=== PATIENT | male | born 2000 | race Caucasian/White ===

== ENCOUNTER 2022-08-13 10:17 | Outpatient (CLI) | payer OTHER, SELFPAY ==
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
--- OUTSIDE RECORDS SUMMARY | 2022-08-13 10:21 | XMS_ITS | Clinical Summary ---
:2000 Author Organization [facility] Address [address] [place] [address] Care Team Providers Name Role Phone Needs Pcp, Assignment Primary Care Provider Source Comments You are receiving this document as you are listed as the primary care provider,follow-up provider, or the patient has been referred to you for consultation.This is in compliance with the Medicare and Medicaid EHR Incentive Program,which states Providers who transition their patient to another setting of careor provider of care or refers their patient to another provider of care shouldprovide summarycare record for each transition of care or referral. [facility] Allergies No known active allergies Medications No known medications Immunizations Name Administration Dates Next Due 4vHPV (Gardasil) 05/27/2013 DTaP 06/17/2006, 09/09/2002, 2001, 2001, 2001 HepA Ped/Adol (1-18 yrs) 05/27/2013 HepA, Pediatric (DO NOT USE; for MIIC 06/23/2007 only) HepB Ped/Adol (0-18 yrs) 2001 HepB, Unspecified Formulation 2001, 2001 Hib (ActHIB) 09/09/2002, 2001, 2001, 2001 IPV (Polio) 06/17/2006, 2001, 2001, 2001 Influenza IIV4 (Quadrivalent) 0.5mL 01/19/2018 (54434) MCV4 (Menactra) 05/27/2013 MMR 06/17/2006, 02/26/2002 Pneumococcal 7, PED 08/30/2003, 2001, 2001, 2001 Tdap 05/27/2013 Typhoid (Typhim Vi, IM) 01/19/2018 Varicella 06/23/2007, 02/26/2002 Social History Tobacco Use Types Packs/Day Years [...] Assigned at Date Recorded Not on file Last Filed Vital Signs Vital Sign Reading [...] - - Body Mass Index - - Plan of Treatment Health Maintenance Due Date Last Done Comments Hep C Screening (Preventive 2001 Services) COVID-19 Vaccine (#1) 2001 HPV Vaccine (2 - Male 11/27/2013 05/27/2013 2-dose series) HIV Screening (Preventive 2017 Services) Adult Preventive Visit 2019 Influenza (#1) 2022 01/19/2018, 09/25/2010, 10/10/2008 DTaP/Tdap/Td (7 - Tdap) 05/27/2023 05/27/2013, 06/17/2006, 09/09/2002, Additional history exists Zoster/Shingles (1 of 2) 2051 HepB Completed 2001, 2001, 2001 Hib Completed 09/09/2002, 2001, 2001, Additional history exists Pneumococcal Aged Out 08/30/2003, 2001, No longe r eligible 2001, Additional based on patient's age history exists to complete this topic IPV (Polio) Completed 06/17/2006, 2001, 2001, Additional history exists Varicella Completed 06/23/2007, 02/26/2002 HepA Completed 05/27/2013, 06/23/2007 MCV4 Aged Out 05/27/2013 No longer eligib le based on patient 's age to complete this topic Insurance Payer Benefit Plan / Subscriber ID Effective Dates Phone Addre ss Type Group BCBS BCBS OUT OF [id number] 2018-Present [address] [address] [place] [address] (Home) KATHY OSORIO [id number] Care Teams Harbor Department Manager Relationship Specialty Start Date End Date Needs Pcp, Assignment PCP - General 07/21/19 [place] [address]
[2022-08-13 14:09] LABS: Basophils Absolute Auto 0.06 K/uL (0.00-0.30); Basophils Percent Auto 0.7 % (0.0-3.0); Eosinophils Absolute Auto 0.22 K/uL (0.00-0.50); Eosinophils Percent Auto 2.7 % (0.0-7.0); Hematocrit 51.5 % (37.0-53.0); Hemoglobin* 16.9 gm/dL (13.5-17.5); Immature Granulocytes Abs Auto 0.01 K/uL (0.00-0.30); Lymphocytes Percent Auto 15.3 % (20-44); Mean Corpuscular HGB Conc 33 gm/dL (32-36); Mean Corpuscular Hemoglobin 30 pg (26-34); Mean Corpuscular Volume 91 fL (80-100); Monocytes Percent Auto 7.1 % (0.0-11.0); Neutrophils Percent Auto 74.1 % (42.0-72.0); Platelet Count* 224 K/uL (140-440); RDW Coefficient of Variation % 11.7 % (11.5-15.5); Red Blood Count 5.64 m/uL (4.30-5.90); White Blood Count* 8.16 K/uL (4.50-11.00)
[2022-08-13 14:38] LABS: Slide Review Reflex No
[2022-08-13 15:07] LABS: Albumin* 4.7 g/dL (3.3-5.0); Chloride* 101 mmol/L (96-114); Sodium* 138 mmol/L (135-149)
[2022-08-13 15:10] LABS: Bilirubin Total* 0.6 mg/dL (0.1-1.5); Carbon Dioxide* 28 mmol/L (20-32); Creatinine* 0.8 mg/dL (0.5-1.5); Estimated Glomerular Filt Rate 129 ml/min
[2022-08-13 15:11] LABS: Alanine Aminotransferase* 21 U/L (4-50); Alkaline Phosphatase* 65 U/L (40-150); Aspartate Amino Transferase* 26 U/L (12-35); Blood Urea Nitrogen* 19 mg/dL (5-24); Calcium* 9.2 mg/dL (8.4-10.6); Glucose* 83 mg/dL (60-115); Potassium* 4.5 mmol/L (3.6-5.1); Total Protein* 7.3 g/dL (6.0-8.3)
[2022-08-13 15:14] LABS: C Reactive Protein* < 0.5 mg/dL (0.5-1.0)
== END 2022-08-13 10:18 | disposition home or self-care (01) ==
PROVIDERS: PCP Family Medicine; Visit Provider Family Medicine
DX: R11.2 Nausea with vomiting, unspecified (principal)
CPT/HCPCS: 80053; 85025; 86140

== ENCOUNTER 2022-08-29 11:55 | Outpatient (CLI) | payer OTHER, SELFPAY ==
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
--- OUTSIDE RECORDS SUMMARY | 2022-08-29 12:01 | XMS_ITS | Clinical Summary ---
:2000 Author Organization [facility] Address [address] [place] [address] Care Team Providers Name Role Phone Needs [...] for each transition of care or referral. [facility] Allergies No known active allergies Medications No [...] 2001, 2001 Influenza IIV4 (Quadrivalent) 0.5mL 01/19/2018 (94822) MCV4 (Menactra) 05/27/2013 MMR 06/17/2006, 02/26/2002 Pneumococcal [...] ss Type Group BCBS BCBS OUT OF [id number] 2018-Present [address] [address] [place] [address] (Home) KATHY OSORIO [id number] Care Teams Bus Person Relationship Specialty Start Date End Date Needs Pcp, Assignment PCP - General 07/21/19 [place] [address]
--- NOTE | 2022-08-29 12:53 | W.ANESCHARGE ---
Anesthesia Charges Start Date/Time Anesthesia Start Date: 08/29/22 Anesthesia Start Time: 12:30 Stop Date/Time Anesthesia Stop Date: 08/29/22 Anesthesia Stop Time: 12:50 Summary Emergency: No
--- NOTE | 2022-08-29 13:03 | W.ANESCHARGE ---
Anesthesia Charges Start Date/Time Anesthesia Start Date: 08/29/22 Anesthesia Start Time: 12:30 Stop Date/Time Anesthesia Stop Date: 08/29/22 Anesthesia Stop Time: 12:50 Summary Emergency: No
== END 2022-08-29 11:56 | disposition home or self-care (01) ==
LOC: OP CLINIC 11:56
PROVIDERS: PCP Family Medicine; Visit Provider Surgery
DX: R11.15 Cyclical vomiting syndrome unrelated to migraine (principal); K31.89 Other diseases of stomach and duodenum
CPT/HCPCS: 00731; 43239; 88305; J2704